=== PATIENT | female | born 1960 | race Caucasian/White ===

== ENCOUNTER → 2025-09-15 13:26 | Outpatient (CLI) | payer OTHER, SELFPAY | LOC: NUCM 13:28 | PROVIDERS: PCP Physician Assistant Medical; Referring Provider Physician Assistant Medical; Visit Provider Physician Assistant Medical | DX: I25.10 Atherosclerotic heart disease of native coronary artery without angina pectoris (principal) | CPT/HCPCS: 78451; A9502 ==